=== PATIENT | female | born 1950 | race Caucasian/White ===

== ENCOUNTER 2022-08-11 14:23 | Emergency (ER) | payer OTHER, MEDICARE ==
[~2022-08-11] VITALS: Ht 149.9 cm; Wt 90.7 kg
[2022-08-11 16:56] LABS: BASOPHILS ABSOLUTE AUTO 0.09 K/mm3 (0.00-0.23); BASOPHILS PERCENT AUTO 1 % (0-2); EOSINOPHILS ABSOLUTE AUTO 0.14 K/mm3 (0.00-0.68); EOSINOPHILS PERCENT AUTO 1 % (0-6); Hematocrit 41.1 % (33.0-51.0); Hemoglobin 13.6 g/dL (11.5-16.0); IMMATURE GRAN PERCENT AUTO 1 % (0-1); LYMPHOCYTES ABSOLUTE AUTO 2.31 K/mm3 (0.84-5.20); LYMPHOCYTES PERCENT AUTO 13 % (21-46); MONOCYTES ABSOLUTE AUTO 1.23 K/mm3 (0.16-1.47); MONOCYTES PERCENT AUTO 7 % (4-13); Mean Corpuscular HGB 29.6 pg (26.0-34.0); Mean Corpuscular HGB Conc 33.1 g/dL (31.5-36.5); Mean Corpuscular Volume 89 fL (80-100); Mean Platelet Volume 9.7 fL (9.1-12.4); NEUTROPHILS ABSOLUTE AUTO 13.54 K/mm3 (1.96-9.15); NEUTROPHILS PERCENT AUTO 78 % (41-73); Platelet Count 278 K/mm3 (150-400); RDW Coefficient Variation 13.8 % (11.7-14.2); RDW Standard Deviation 44.9 fL (35.1-46.3); White Blood Cell Count 17.41 K/mm3 (4.00-11.30)
[2022-08-11 17:41] LABS: Albumin, Blood 3.9 g/dL (3.4-5.0); Albumin/Globulin Ratio 1.2 (0.8-1.8); Bilirubin, Total 0.3 mg/dL (0.1-1.0); Bun/Creatinine Ratio 15.6 (12.0-20.0); Creatinine, Blood 0.7 mg/dL (0.40-1.00); Globulin, Blood 3.2 g/dL (2.2-4.0); Potassium, Blood 3.9 mmol/L (3.5-5.5); Total Protein, Blood 7.1 g/dL (6.4-8.2)
[2022-08-11] MEDS ORDERED: ASPI81CH PO (18:25)
[2022-08-11] MEDS ORDERED: ATOR20 PO (18:25)
[2022-08-11] MEDS ORDERED: Prinivil10 MG PO (18:26)
[2022-08-11] MEDS ORDERED: METF500 PO (18:26)
[2022-08-11] MEDS ORDERED: ALLO100 PO (18:26)
== END 2022-08-11 19:20 | disposition home or self-care (01) ==
LOC: ER 14:23
PROVIDERS: Physician Assistant
DX: S62.325A Displaced fracture of shaft of fourth metacarpal bone, left hand, initial encounter for closed fracture (principal); S30.1XXA Contusion of abdominal wall, initial encounter; M25.551 Pain in right hip; V43.62XA Car passenger injured in collision with other type car in traffic accident, initial encounter; Z79.899 Other long term (current) drug therapy; Z79.84 Long term (current) use of oral hypoglycemic drugs; Z79.82 Long term (current) use of aspirin
CPT/HCPCS: 73130; 74177; 80053; 85025; Q9967

== ENCOUNTER → 2024-12-17 | Outpatient (CLI) | payer MEDICARE ==
[~2024-12-17] MED LIST: ALLO100 PO; ASPI81CH PO; ATOR20 PO; METF500 PO; Prinivil10 MG PO
[2024-12-17 20:27] LABS: Bacterial Vaginosis PCR Negative (NEGATIVE); Candida Group, PCR NOT DETECTED (NOT DETECT); Candida glabrata-krusei, PCR NOT DETECTED (NOT DETECT)
== END ==
LOC: LAB 17:33 → LAB SHORT 17:33
PROVIDERS: Physician Assistant
DX: N89.8 Other specified noninflammatory disorders of vagina (principal)
CPT/HCPCS: 81515

== ENCOUNTER → 2025-03-31 | Outpatient (CLI) | payer MEDICARE, OTHER ==
[2025-03-31 12:56] LABS: Creatinine, Urine Random 64.6 mg/dL (27.00-270.00)
[2025-03-31 12:59] LABS: Microalb/Creat Ratio UR, Rand 14.489 mg/g (0.000-30.000); Microalbumin, Random Urine 9.36 mg/L (0.000-20.000)
== END | disposition home or self-care (01) ==
LOC: LAB 10:10 → LAB SHORT 10:10 → LAB FUT 03-31 09:40 → EDSTATUS 03-31 09:40
DX: E11.65 Type 2 diabetes mellitus with hyperglycemia (principal)
CPT/HCPCS: 82043; 82570

== ENCOUNTER 2025-04-10 08:00 | Day surgery (SDC) | payer MEDICARE, OTHER ==
[2025-04-10] MEDS ORDERED: METF500 PO (09:53)
[2025-04-10] MEDS ORDERED: HYDCHL25 PO (09:54)
[2025-04-10] MEDS ORDERED: ELIQUIS5 M2 PO (09:54)
[2025-04-10] MEDS ORDERED: Amlodipine Bes2.5 MG PO (09:54)
[2025-04-10] MEDS ORDERED: INSULIN GL300 UNIT/2 SC (09:56)
[2025-04-10] MEDS ORDERED: FENO54 PO (09:57)
[2025-04-10] MEDS ORDERED: VITAMIN D32000 UNI1 PO (09:58)
[2025-04-10] MEDS ORDERED: MAGNESIUM OXID500 MG PO (09:58)
== END 2025-04-10 23:32 | disposition home or self-care (01) ==
LOC: WOUND 08:00
DX: T81.31XD Disruption of external operation (surgical) wound, not elsewhere classified, subsequent encounter (principal); E11.65 Type 2 diabetes mellitus with hyperglycemia; E11.42 Type 2 diabetes mellitus with diabetic polyneuropathy; I10 Essential (primary) hypertension; C54.1 Malignant neoplasm of endometrium; Y83.8 Other surgical procedures as the cause of abnormal reaction of the patient, or of later complication, without mention of misadventure at the time of the procedure; R00.0 Tachycardia, unspecified; R00.2 Palpitations; R55 Syncope and collapse; D61.818 Other pancytopenia; E87.6 Hypokalemia; Z86.711 Personal history of pulmonary embolism; Z79.899 Other long term (current) drug therapy; Z79.4 Long term (current) use of insulin; Z88.0 Allergy status to penicillin; Z88.8 Allergy status to other drugs, medicaments and biological substances; E83.42 Hypomagnesemia
CPT/HCPCS: 80053; 83735; 83880; 84484; 85025; 93005; 93010; 93242; 96365; 96366; 96368; 99285-25; A6213; A9270; G0463; J3475; J3480; J7030

== ENCOUNTER 2025-04-10 09:11 | Emergency (ER) | payer MEDICARE, OTHER ==
[~2025-04-10] VITALS: Ht 149.9 cm; Wt 75.8 kg
[2025-04-10 09:48] LABS: BASOPHILS ABSOLUTE AUTO 0.05 K/mm3 (0.00-0.23); BASOPHILS PERCENT AUTO 2 % (0-2); EOSINOPHILS ABSOLUTE AUTO 0.16 K/mm3 (0.00-0.68); EOSINOPHILS PERCENT AUTO 6 % (0-6); Hematocrit 32.1 % (33.0-51.0); Hemoglobin 10.8 g/dL (11.5-16.0); IMMATURE GRAN ABSOLUTE AUTO 0.01 K/mm3 (0.00-0.10); IMMATURE GRAN PERCENT AUTO 0 % (0-1); LYMPHOCYTES ABSOLUTE AUTO 1.18 K/mm3 (0.84-5.20); LYMPHOCYTES PERCENT AUTO 47 % (21-46); MONOCYTES ABSOLUTE AUTO 0.25 K/mm3 (0.16-1.47); MONOCYTES PERCENT AUTO 10 % (4-13); Mean Corpuscular HGB 29.2 pg (26.0-34.0); Mean Corpuscular HGB Conc 33.6 g/dL (31.5-36.5); Mean Corpuscular Volume 87 fL (80-100); Mean Platelet Volume 9.7 fL (9.1-12.4); NEUTROPHILS ABSOLUTE AUTO 0.84 K/mm3 (1.96-9.15); NEUTROPHILS PERCENT AUTO 34 % (41-73); Platelet Count 130 K/mm3 (150-400); RDW Coefficient Variation 15.8 % (11.7-14.2); RDW Standard Deviation 49.8 fL (35.1-46.3); White Blood Cell Count 2.49 K/mm3 (4.00-11.30)
[2025-04-10] MEDS ORDERED: METF500 PO (09:53)
[2025-04-10] MEDS ORDERED: ELIQUIS5 M2 PO (09:54)
[2025-04-10] MEDS ORDERED: Amlodipine Bes2.5 MG PO (09:54)
[2025-04-10] MEDS ORDERED: HYDCHL25 PO (09:54)
[2025-04-10] MEDS ORDERED: INSULIN GL300 UNIT/2 SC (09:56)
[2025-04-10] MEDS ORDERED: FENO54 PO (09:57)
[2025-04-10] MEDS ORDERED: MAGNESIUM OXID500 MG PO (09:58)
[2025-04-10] MEDS ORDERED: VITAMIN D32000 UNI1 PO (09:58)
[2025-04-10 10:04] LABS: Albumin, Blood 3.7 g/dL (3.4-5.0); Albumin/Globulin Ratio 1.1 (0.8-1.8); Bilirubin, Total 0.5 mg/dL (0.1-1.0); Bun/Creatinine Ratio 36.7 (12.0-20.0); Calcium, Blood 9.4 mg/dL (8.5-10.1); Creatinine, Blood 0.82 mg/dL (0.40-1.00); Globulin, Blood 3.5 g/dL (2.2-4.0); Magnesium, Blood 1.2 mg/dL (1.6-2.4); Potassium, Blood 3.6 mmol/L (3.5-5.5); Total Protein, Blood 7.2 g/dL (6.4-8.2)
[2025-04-10] MEDS ORDERED: Potassium Chloride 20 MEQ/15 ML UDC PO ONE (10:25)
[2025-04-10] MEDS ORDERED: Magnesium Sulf 2 GM/Water 50ML 100 ML IV ONE (10:25)
[2025-04-10] MEDS ORDERED: Potassium Chl 20MEQ/Water100ML 100 ML IV ONE (10:25)
[2025-04-10] MEDS ORDERED: NS 1,000 ML IV SCH (11:50)
[2025-04-10 12:56] VITALS: BP 132/62
== END 2025-04-10 12:56 | disposition home or self-care (01) ==
LOC: ER 09:11
PROVIDERS: Student in an Organized Health Care Education/Training Program
DX: R00.0 Tachycardia, unspecified (principal); R00.2 Palpitations; R55 Syncope and collapse; E83.42 Hypomagnesemia; D61.818 Other pancytopenia; E87.6 Hypokalemia; C55 Malignant neoplasm of uterus, part unspecified; E11.9 Type 2 diabetes mellitus without complications; Z86.711 Personal history of pulmonary embolism; Z79.899 Other long term (current) drug therapy; Z79.4 Long term (current) use of insulin; Z88.0 Allergy status to penicillin; Z88.8 Allergy status to other drugs, medicaments and biological substances
CPT/HCPCS: 80053; 83735; 83880; 84484; 85025; 93005; 93010; 93242; 96365; 96366; 96368; 99285-25; A9270; J3475; J3480; J7030

== ENCOUNTER 2025-04-17 02:50 | Day surgery (SDC) | payer MEDICARE, OTHER ==
[~2025-04-17 02:50] MED LIST changes: +Amlodipine Bes2.5 MG PO; +ELIQUIS5 M2 PO; +FENO54 PO; +HYDCHL25 PO; +INSULIN GL300 UNIT/2 SC; +MAGNESIUM OXID500 MG PO; +VITAMIN D32000 UNI1 PO
[2025-04-17] MEDS ORDERED: Lidocaine HCl 4% Cream 5 GM ONE (14:27)
== END 2025-04-17 23:00 | disposition home or self-care (01) ==
LOC: WOUND 02:50
DX: T81.31XA Disruption of external operation (surgical) wound, not elsewhere classified, initial encounter (principal); E11.65 Type 2 diabetes mellitus with hyperglycemia; E11.42 Type 2 diabetes mellitus with diabetic polyneuropathy; I10 Essential (primary) hypertension; C54.1 Malignant neoplasm of endometrium; Y83.8 Other surgical procedures as the cause of abnormal reaction of the patient, or of later complication, without mention of misadventure at the time of the procedure
CPT/HCPCS: A6213; A9270; G0463

== ENCOUNTER 2025-05-22 01:47 | Day surgery (SDC) | payer MEDICARE, OTHER | END 2025-05-22 23:00 | disposition home or self-care (01) | LOC: WOUND 01:47 | DX: T81.31XD Disruption of external operation (surgical) wound, not elsewhere classified, subsequent encounter (principal); E11.65 Type 2 diabetes mellitus with hyperglycemia; E11.42 Type 2 diabetes mellitus with diabetic polyneuropathy; I10 Essential (primary) hypertension | CPT/HCPCS: A6213; G0463 ==

== ENCOUNTER 2025-05-29 06:06 | Day surgery (SDC) | payer MEDICARE, OTHER ==
[2025-05-29] MEDS ORDERED: Lidocaine HCl 4% Cream 5 GM ONE (14:26)
== END 2025-05-29 23:00 | disposition home or self-care (01) ==
LOC: WOUND 06:06
DX: T81.31XA Disruption of external operation (surgical) wound, not elsewhere classified, initial encounter (principal); E11.65 Type 2 diabetes mellitus with hyperglycemia; E11.42 Type 2 diabetes mellitus with diabetic polyneuropathy; I10 Essential (primary) hypertension; C54.1 Malignant neoplasm of endometrium; Y83.8 Other surgical procedures as the cause of abnormal reaction of the patient, or of later complication, without mention of misadventure at the time of the procedure
CPT/HCPCS: A6213; A9270; G0463

== ENCOUNTER 2025-06-12 04:23 | Day surgery (SDC) | payer MEDICARE, OTHER | END 2025-06-12 23:00 | disposition home or self-care (01) | LOC: WOUND 04:23 | DX: T81.31XD Disruption of external operation (surgical) wound, not elsewhere classified, subsequent encounter (principal); E11.65 Type 2 diabetes mellitus with hyperglycemia; E11.42 Type 2 diabetes mellitus with diabetic polyneuropathy; I10 Essential (primary) hypertension; C54.1 Malignant neoplasm of endometrium | CPT/HCPCS: A6213; G0463 ==

== ENCOUNTER 2025-07-03 01:04 | Day surgery (SDC) | payer MEDICARE, OTHER | END 2025-07-03 23:00 | disposition home or self-care (01) | LOC: WOUND 01:04 | DX: T81.31XD Disruption of external operation (surgical) wound, not elsewhere classified, subsequent encounter (principal); E11.42 Type 2 diabetes mellitus with diabetic polyneuropathy; E11.65 Type 2 diabetes mellitus with hyperglycemia; I10 Essential (primary) hypertension; C54.1 Malignant neoplasm of endometrium | CPT/HCPCS: A6213; G0463 ==

== ENCOUNTER 2025-07-15 02:44 | Day surgery (SDC) | payer MEDICARE, OTHER | END 2025-07-15 23:00 | disposition home or self-care (01) | LOC: WOUND 02:44 | DX: T81.31XA Disruption of external operation (surgical) wound, not elsewhere classified, initial encounter (principal); E11.65 Type 2 diabetes mellitus with hyperglycemia; E11.42 Type 2 diabetes mellitus with diabetic polyneuropathy; I10 Essential (primary) hypertension; C54.1 Malignant neoplasm of endometrium; X58.XXXA Exposure to other specified factors, initial encounter | CPT/HCPCS: A6213; G0463 ==

== ENCOUNTER 2025-07-28 02:53 | Day surgery (SDC) | payer MEDICARE, OTHER | END 2025-07-28 23:00 | disposition home or self-care (01) | LOC: WOUND 02:53 | DX: T81.31XD Disruption of external operation (surgical) wound, not elsewhere classified, subsequent encounter (principal); E11.65 Type 2 diabetes mellitus with hyperglycemia; E11.42 Type 2 diabetes mellitus with diabetic polyneuropathy; I10 Essential (primary) hypertension; C54.1 Malignant neoplasm of endometrium | CPT/HCPCS: A6213; G0463 ==

== ENCOUNTER 2025-08-27 03:06 | Day surgery (SDC) | payer MEDICARE, OTHER ==
[2025-08-27] MEDS ORDERED: Lidocaine HCl 4% Cream 5 GM ONE (14:32)
== END 2025-08-27 23:00 | disposition home or self-care (01) ==
LOC: WOUND 03:06
DX: T81.31XD Disruption of external operation (surgical) wound, not elsewhere classified, subsequent encounter (principal); C54.1 Malignant neoplasm of endometrium; I10 Essential (primary) hypertension; E11.42 Type 2 diabetes mellitus with diabetic polyneuropathy; E11.65 Type 2 diabetes mellitus with hyperglycemia; Z86.006 Personal history of melanoma in-situ
CPT/HCPCS: A9270; G0463